=== PATIENT | female | born 1950 | race Caucasian/White ===

== ENCOUNTER 2022-10-30 11:31 | Outpatient (CLI) | payer MEDICARE, BC, SELFPAY ==
--- NOTE | 2022-10-30 11:30 | CRLHL7_ITS ---
For Patients: As a result of the Cures Act, medical imaging exams and procedure reports are released immediately into your electronic medical record. You may view this report before your referring provider. If you have questions, please contact your health care provider. BILATERAL SCREENING MAMMOGRAM WITH COMPUTER-AIDED DETECTION AND TOMOSYNTHESIS TECHNIQUE: CC and MLO views were obtained. These mammographic images have been obtained using full-field digital technique. These mammographic images were interpreted with the benefit of computer-aided detection. Breast Tomosynthesis was used in this interpretation. COMPARISON FILM: 10/28/21, 10/13/20, 09/22/19. FINDINGS: The breasts are heterogeneously dense, which may obscure small masses IMPRESSION: There is no radiographic evidence for malignancy. ASSESSMENT: BI-RADS Category 1: Negative RECOMMENDATION: Routine screening mammogram in 1 year. A lay language report of this examination will be provided to the patient. BA PHELAN MD Diagnostic/Nuclear Medicine Radiologist [email or web address] SHAMAR/ирина be/Dictated by: Ba Phelan MD @ 10/31/2022 8:18:00 AM (Electronically Signed)
== END 2022-10-30 11:32 | disposition home or self-care (01) ==
PROVIDERS: PCP Family Medicine; Visit Provider Family Medicine
DX: Z12.31 Encounter for screening mammogram for malignant neoplasm of breast (principal); R92.2 Inconclusive mammogram
CPT/HCPCS: 77063; 77067

== ENCOUNTER 2023-11-01 10:05 | Outpatient (CLI) | payer MEDICARE, BC, SELFPAY ==
--- NOTE | 2023-11-01 10:15 | MM_ITS ---
Patient: ADOLFO LEARY Facility:?[facility] Patient ID:?[id number] Site Patient [id number]:?[id number]. Site :?[id number] Study:?XRay-Breast Left 3D W/CAD-11/01/2023 11:58:35 AM Ordering Physician:?Ashley Aparicio Final Report: LEFT SCREENING MAMMOGRAM WITH COMPUTER-AIDED DETECTION AND TOMOSYNTHESIS TECHNIQUE: CC and MLO views were obtained. These mammographic images have been obtained using full-field digital technique. These mammographic images were interpreted with the benefit of computer-aided detection. Breast Tomosynthesis was used in this interpretation. COMPARISON FILM: 10/30/22, 10/28/21, 10/13/20. FINDINGS: The breasts are heterogeneously dense, which may obscure small masses IMPRESSION: There is no radiographic evidence for malignancy. ASSESSMENT: BI-RADS Category 1: Negative RECOMMENDATION: Routine screening mammogram in 1 year. A lay language report of this examination will be provided to the patient. Hernan Chance M.D. Diagnostic Radiologist [email or web address] TAJ/ирина / be/Dictated by: Hernan Chance MD @ 11/02/2023 8:31:00 AM Signed by:?Hernan Chance MD @11/03/2023 10:15:31 AM (Electronic Signature)
== END 2023-11-01 10:06 | disposition home or self-care (01) ==
LOC: MAMMO 10:06
PROVIDERS: PCP Family Medicine; Visit Provider Family Medicine
DX: Z12.31 Encounter for screening mammogram for malignant neoplasm of breast (principal); R92.2 Inconclusive mammogram
CPT/HCPCS: 77063; 77067

== ENCOUNTER 2024-07-09 19:21 | Emergency (ER) | payer MEDICARE, BC, SELFPAY ==
[2024-07-09 19:26] VITALS: BP 154/82; PULSE 74; RESP 20; TEMP 36.7; O2SAT 99; BMI 24.9
--- NOTE | 2024-07-09 19:47 | ED.GENADULT ---
HPI - General Adult General Chief complaint: Laceration/Wound Stated complaint: R eye lac from house plant Time Seen by Provider: 07/09/24 19:25 History of Present Illness HPI narrative: This 73-year-old female comes in with an injury to the sclera of the lateral aspect of her right eye. She states that a plant accidentally scratched her eye in this area. She has redness from bleeding from a subconjunctival hematoma. She does not report any vision changes. She does not have significant pain or discomfort. She does state that she feels more symptoms if attempting to look to the right but is able to do so easily. She is not on any anticoagulants. Related Data Home Medications ?Medication ?Instructions ?Recorded ?Confirmed losartan 50 mg-hydrochlorothiazide 1 tab PO DAILY 07/09/24 07/09/24 12.5 mg tablet rosuvastatin 5 mg tablet 5 mg PO QPM 07/09/24 07/09/24 trazodone 50 mg tablet 50 mg PO QPM PRN 07/09/24 07/09/24 Allergies Allergy/AdvReac Type Severity Reaction Status Date / Time No Known Drug Allergies Allergy Verified 07/09/24 19:28 Review of Systems Status of ROS: Reports: 10 or more systems reviewed and unremarkable except as noted in History and below Narrative: Constitutional: No fevers, no weight gain or loss. Eyes: No discharge. No vision changes. Injury to the lateral aspect of the right eye. HENT: No congestion, no sore throat, no ear pain. Cardiovascular: No chest pain, no palpitations. Respiratory: No shortness of breath, no wheezes, no cough. Gastrointestinal: No abdominal pain, no vomiting, no diarrhea. Genitourinary: No dysuria, no hematuria. Musculoskeletal: Normal range of motion. Skin: No rashes, no pruritis. Neurological: No dizziness, weakness, sensory change, speech change. Endo/Heme/Allergies: No bruising or bleeding. No polydipsia. Pysch: no suicidality, no anxiety, no insomnia. All other systems reviewed and are negative. PFSH PFSH Social History Smoking Status: Never smoker Second hand tobacco smoke exposure: No How often do you have a drink containing alcohol: never AUDIT-C Alcohol total score: 0 Non-prescribed substance use: denies use Exam Narrative: Exam Narrative: Constitutional: Well-developed, well-nourished, no acute distress. HEENT: Normocephalic, atraumatic. The right eye has a subconjunctival hematoma on the lateral aspect involving the sclera. Visual stephens are intact. The cornea appears normal. No sign of foreign object. Neck: Normal range of motion. Nontender. Supple. Heart: Intact distal pulses. Lungs: No chest discomfort. No wheezes, rhonchi, or rales. Abdomen: Nontender. Back: Normal range of motion. Extremities: Normal range of motion. No injury. Skin: Intact. No rash. Warm. No erythema or pallor. Neurologic: No altered sensation. No weakness. Alert and oriented. Psychiatric: No suicidality. No anxiety or depression. No insomnia. Nursing notes and vitals signs are reviewed. Const: Vital Signs, click to edit/add: Vital Signs - 24 hr 07/09/24 19:26 Temperature 98.0 F Pulse Rate [Right Pulse Oximeter] 74 Respiratory Rate 20 Blood Pressure [Ri ght Upper Arm] 154/82 H Pulse Oximetry 99 Oxygen Delivery Me thod Room Air Course Vital Signs Vital signs: Initial Vital Signs Temperature 98.0 F 07/09/24 19:26 Temperature Source Temporal Artery Scan 07/09/24 19:26 Pulse Rate 74 07/09/24 19:26 Respiratory Rate 20 07/09/24 19:26 Blood Pressure 154/82 H 07/09/24 19:26 Blood Pressure Mean 106 H 07/09/24 19:26 Blood Pressure Position Sitting 07/09/24 19:26 Pulse Oximetry 99 07/09/24 19:26 Oxygen Delivery Method Room Air 07/09/24 19:26 Vital Signs Temperature 98.0 F 07/09/24 19:26 Pulse Rate 74 07/09/24 19:26 Respiratory Rate 20 07/09/24 19:26 Blood Pressure 154/82 H 07/09/24 19:26 Pulse Oximetry 99 07/09/24 19:26 Oxygen Delivery Method Room Air 07/09/24 19:26 Temperature 98.0 F 07/09/24 19:26 Pulse Rate 74 07/09/24 19:26 Respiratory Rate 20 07/09/24 19:26 Blood Pressure 154/82 H 07/09/24 19:26 Pulse Oximetry 99 07/09/24 19:26 Oxygen Delivery Method Room Air 07/09/24 19:26 Medical Decision Making [facility] Narrative Medical decision making narrative: This patient has an injury to the lateral aspect of her right eye. I did examine her eye under magnification. There is a bit of a bulging of her conjunctivae overlying the sclera in this area from hematoma. The patient is not in much discomfort. She is okay to be discharged home. I did provide a prescription for gentamicin ophthalmic drops and instructed her regarding signs and symptoms where she should follow-up with an eye doctor. Discharge Plan Discharge Clinical Impression: Subconjunctival hematoma Patient Disposition: Home, Self-Care Condition: Stable Additional Instructions: Use eye drops as prescribed. Follow up with window unit air conditioning mechanic or alcoholic counselor if not improving or worsening. Prescriptions: No Action trazodone 50 mg tablet 50 mg PO QPM PRN losartan-hydrochlorothiazide 50-12.5 mg tablet 1 tab PO DAILY rosuvastatin 5 mg tablet 5 mg PO QPM Follow Up/Referrals: Daria Luke MD [Primary Care Provider] - Stand Alone Forms: [employer] Info Instructions
[2024-07-09 20:10] VITALS: BP 145/81; PULSE 78; RESP 20; TEMP 36.7; O2SAT 99
[2024-07-09 20:11] VITALS: BP 145/81; PULSE 78; RESP 20; TEMP 36.7
== END 2024-07-09 20:11 | disposition home or self-care (01) ==
LOC: ED 20:07
PROVIDERS: Emergency Provider Emergency Medicine Emergency Medical Services; PCP Family Medicine
DX: H11.31 Conjunctival hemorrhage, right eye (principal)
CPT/HCPCS: 99283; 99284

== ENCOUNTER 2024-11-03 13:36 | Outpatient (CLI) | payer MEDICARE, BC, SELFPAY ==
--- NOTE | 2024-11-03 13:40 | CRLHL7_ITS ---
For Patients: As a result of the Century Cures Act, medical imaging exams and procedure reports are released immediately into your electronic medical record. You may view this report before your referring provider. If you have questions, please contact your health care provider. BILATERAL SCREENING MAMMOGRAM WITH COMPUTER-AIDED DETECTION AND TOMOSYNTHESIS TECHNIQUE: CC and MLO views were obtained. These mammographic images have been obtained using full-field digital technique. These mammographic images were interpreted with the benefit of computer-aided detection. Breast Tomosynthesis was used in this interpretation. COMPARISON FILM: 11/01/23, 10/30/22, 10/28/21. FINDINGS: The breasts are extremely dense, which lowers the sensitivity of mammography IMPRESSION: There is no radiographic evidence for malignancy. ASSESSMENT: BI-RADS Category 1: Negative RECOMMENDATION: Routine screening mammogram in 1 year. A lay language report of this examination will be provided to the patient. Hernan Chance M.D. Diagnostic Radiologist [email or web address] TAJ/lorenzo Transcribed: 4:19 p.mGisella ventura/Dictated by: Hernan Chance MD @ 11/04/2024 8:40:00 AM (Electronically Signed)
== END 2024-11-03 13:37 | disposition home or self-care (01) ==
LOC: MAMMO 13:37
PROVIDERS: PCP Family Medicine; Visit Provider Family Medicine
DX: Z12.31 Encounter for screening mammogram for malignant neoplasm of breast (principal); R92.343 Mammographic extreme density, bilateral breasts
CPT/HCPCS: 77063; 77067